=== PATIENT | female | born 1965 ===

== ENCOUNTER 2022-10-26 17:47 | Emergency (ER) | payer MEDICAID ==
[~2022-10-26] VITALS: Ht 170.2 cm; Wt 50.0 kg
[2022-10-26 18:20] VITALS: BP 109/76
== END 2022-10-26 22:53 | disposition left against medical advice (07) ==
LOC: ER 17:48
DX: R20.0 Anesthesia of skin (principal); T63.301A Toxic effect of unspecified spider venom, accidental (unintentional), initial encounter; Z53.21 Procedure and treatment not carried out due to patient leaving prior to being seen by health care provider; Y92.89 Other specified places as the place of occurrence of the external cause